=== PATIENT | male | born 1960 | race Caucasian/White ===

== ENCOUNTER 2022-06-27 15:56 | Inpatient (IN) | payer OTHER ==
[2022-06-27 17:01] LABS: HCT 33.7 % (39.0-53.0); MCH 36.6 pg (25.0-35.0); MCHC 32.7 g/dL (31.0-37.0); MCV 112.1 fL (80.0-100.0); Macrocytosis Marked; Platelet Count 195 k/uL (150-450); RDW 13.5 % (11.5-15.5); WBC 19.1 k/uL (3.8-10.6)
--- NOTE | 2022-06-27 17:08 | XR ---
EXAMINATION TYPE: XR chest 2V DATE OF EXAM: 06/27/2022 COMPARISON: NONE HISTORY: Shortness of breath TECHNIQUE: Frontal and lateral views of the chest are obtained. FINDINGS: Scattered senescent parenchymal changes noted. Left lower lobe opacity may reflect developing pneumonia. Correlate clinically. Heart size is stable. Mediastinal structures are stable and grossly unremarkable. No evidence for hilar prominence. Degenerative changes dorsal spine. IMPRESSION: 1. Left lower lobe opacity may reflect developing pneumonia. Correlate clinically.
[2022-06-27 17:18] LABS: ALT 68 U/L (4-49); AST 145 U/L (17-59); African American GFR (CKD) >90 (>60 ml/min/1.73 sqM); Albumin 2.6 g/dL (3.5-5.0); Alkaline Phosphatase 144 U/L (38-126); Anion Gap 9 mmol/L; Blood Urea Nitrogen 19 mg/dL (9-20); Calcium 8.6 mg/dL (8.4-10.2); Carbon Dioxide 22 mmol/L (22-30); Chloride 95 mmol/L (98-107); Glucose 108 mg/dL (74-99); Magnesium 1.8 mg/dL (1.6-2.3); Non-African American GFR(CKD) >90 (>60 ml/min/1.73 sqM); Sodium 126 mmol/L (137-145); Total Bilirubin 5.7 mg/dL (0.2-1.3); Total Protein 6.1 g/dL (6.3-8.2)
[2022-06-27 17:30] LABS: Potassium 5.1 mmol/L (3.5-5.1)
[2022-06-27 17:31] LABS: Lactic Acid, Venous 2.1 mmol/L (0.7-2.0)
--- NOTE | 2022-06-27 17:33 | ED ---
General Adult HPI - General Chief complaint: Recheck/Abnormal Lab/Rx Stated complaint: pneumonia Time Seen by Provider: 06/27/22 16:12 Source: patient, RN notes reviewed, old records reviewed Mode of arrival: EMS - History of Present Illness Initial comments: 61-year-old male presenting for evaluation of fever, pneumonia. Patient sent from assisted for evaluation. Patient has had persistent fever and is currently being treated for pneumonia as an outpatient. He has history of liver cirrhosis and recurrent ascites. Patient is a poor historian but does not have any specific complaints. - Related Data Home Medications Medication Instructions Recorded Confirmed No Known Home Medications 06/27/22 06/27/22 Allergies Allergy/AdvReac Type Severity Reaction Status Date / Time No Known Allergies Allergy Verified 06/27/22 17:51 Review of Systems ROS Statement: Those systems with pertinent positive or pertinent negative responses have been documented in the HPI. ROS Other: All systems not noted in ROS Statement are negative. Past Medical History Additional Past Medical History / Comment(s): aLCOHOLIC cIRRHOSIS OF LIVER WITH ASCITES, WERNICKE'S ENCEPHALOPATHY, THROMBOCYTOPENIA, Past Surgical History: Unable to Obtain Smoking Status: Never smoker General Exam General appearance: alert, in no apparent distress Head exam: Present: atraumatic, normocephalic Eye exam: Present: normal appearance, PERRL, scleral icterus Respiratory exam: Present: normal lung sounds bilaterally. Absent: respiratory distress, wheezes Cardiovascular Exam: Present: regular rate, normal rhythm GI/Abdominal exam: Present: soft, distended. Absent: tenderness, guarding Neurological exam: Present: alert Psychiatric exam: Present: normal affect, normal mood Skin exam: Present: warm, dry, other (Jaundice) Course Vital Signs 06/27/22 06/27/22 15:59 16:58 Temperature 98.3 F Pulse Rate 91 Respiratory 18 20 Rate Blood Pressure 123/103 O2 Sat by Pulse 97 Oximetry Medical Decision Making - Medical Decision Making 61-year-old male presenting with fever, outpatient diagnosis of pneumonia, fails to improve, continued fever. Patient also has abdominal ascites and history of liver failure. No baseline labs for comparison but the patient does appear to be liver failure currently. He also has an elevated white blood cell count at 19. He has a left-sided pneumonia on chest x-ray. He started on IV antibiotics she will be admitted for IV hydration although will receive refrain from too much fluids given his fluid status, hypoalbuminemia and ascites. Additionally he has a hyponatremia. He will be admitted to [facility]. - Lab Data Result diagrams: 06/27/22 16:50 06/27/22 16:50 Lab Results 06/27/22 06/27/22 06/27/22 Range/Units 16:50 16:50 16:50 WBC 19.1 H (3.8-10.6) k/uL RBC 3.00 L (4.30-5.90) m/uL Hgb 11.0 L (13.0-17.5) gm/dL Hct 33.7 L (39.0-53.0) % MCV 112.1 H (80.0-100.0) fL MCH 36.6 H (25.0-35.0) pg MCHC 32.7 (31.0-37.0) g/dL RDW 13.5 (11.5-15.5) % Plt Count 195 (150-450) k/uL MPV 8.0 Macrocytosis Marked A APTT 27.2 (22.0-30.0) sec Sodium 126 L (137-145) mmol/L Potassium 5.1 (3.5-5.1) mmol/L Chloride 95 L (98-107) mmol/L Carbon Dioxide 22 (22-30) mmol/L Anion Gap 9 mmol/L BUN 19 (9-20) mg/dL Creatinine 0.71 (0.66-1.25) mg/dL Est GFR (CKD-EPI)AfAm >90 (>60 ml/min/1.73 sqM) Est GFR (CKD-EPI)NonAf >90 (>60 ml/min/1.73 sqM) Glucose 108 H (74-99) mg/dL Plasma Lactic Acid Yousuf (0.7-2.0) mmol/L Calcium 8.6 (8.4-10.2) mg/dL Magnesium 1.8 (1.6-2.3) mg/dL Total Bilirubin 5.7 H (0.2-1.3) mg/dL AST 145 H (17-59) U/L ALT 68 H (4-49) U/L Alkaline Phosphatase 144 H (38-126) U/L Ammonia (<30) umol/L Total Protein 6.1 L (6.3-8.2) g/dL Albumin 2.6 L (3.5-5.0) g/dL Coronavirus (PCR) (Not Detectd) 06/27/22 06/27/22 Range/Units 16:50 16:50 WBC (3.8-10.6) k/uL RBC (4.30-5.90) m/uL Hgb (13.0-17.5) gm/dL Hct (39.0-53.0) % MCV (80.0-100.0) fL MCH (25.0-35.0) pg MCHC (31.0-37.0) g/dL RDW (11.5-15.5) % Plt Count (150-450) k/uL MPV Macrocytosis APTT (22.0-30.0) sec Sodium (137-145) mmol/L Potassium (3.5-5.1) mmol/L Chloride (98-107) mmol/L Carbon Dioxide (22-30) mmol/L Anion Gap mmol/L BUN (9-20) mg/dL Creatinine (0.66-1.25) mg/dL Est GFR (CKD-EPI)AfAm (>60 ml/min/1.73 sqM) Est GFR (CKD-EPI)NonAf (>60 ml/min/1.73 sqM) Glucose (74-99) mg/dL Plasma Lactic Acid Yousuf 2.1 H* (0.7-2.0) mmol/L Calcium (8.4-10.2) mg/dL Magnesium (1.6-2.3) mg/dL Total Bilirubin (0.2-1.3) mg/dL AST (17-59) U/L ALT (4-49) U/L Alkaline Phosphatase (38-126) U/L Ammonia 16 (<30) umol/L Total Protein (6.3-8.2) g/dL Albumin (3.5-5.0) g/dL Coronavirus (PCR) Not Detected (Not Detectd) Disposition Clinical Impression: Pneumonia, Liver cirrhosis, Hyponatremia Disposition: ADMITTED IP TO THIS [facility] Condition: Stable Is patient prescribed a controlled substance at d/c from ED?: No Referrals: None,Stated [Primary Care Provider] - 1-2 days Time of Disposition: 18:02
[2022-06-27] MEDS ORDERED: cefTRIAXone IN SWFI 1,000 MG/10 ML SYRINGE IVP STA (17:49)
[2022-06-27] MEDS ORDERED: AZITHROMYCIN 500 MG in SODIUM CHLORIDE 0.9% 250 ML IVPB STA (17:59)
[2022-06-27] MEDS ORDERED: PNEUMONIA PROTOCOL UTILIZED 1 EACH MISC PO PRN (17:59)
[2022-06-27 18:15] LABS: Band Neutrophils % 2 %; Eosinophils # (M) 0.38 k/uL (0-0.7); Lymphocytes # (M) 0.96 k/uL (1.0-4.8); Monocytes # (M) 2.29 k/uL (0-1.0); Neutrophils % (M) 79 %; Nucleated Red Blood Cells 0 /100 WBC (0-0); Total Cells Counted 100
[2022-06-27 18:19] LABS: Polychromasia Present
[2022-06-27] MEDS: SODIUM CHLORIDE 0.9% 1,000 ML IV SCH (23:48)
[2022-06-28] MEDS: SODIUM CHLORIDE 0.9% 1,000 ML IV SCH (00:14)
--- NOTE | 2022-06-28 00:23 | P.HPIM ---
History of Present Illness H&P Date: 06/27/22 The patient is a 61-year-old male with a PMH of alcoholic liver cirrhosis, resident of [facility] who was sent in due to confusion and abnormal labs. The patient was a relatively poor historian, thereby history obtained from the ED physician and from the chart. The patient was unaware as to why he was brought to the emergency room and was only oriented to time and self, not oriented to place. The patient reportedly has had persistent fever and was suspected of having pneumonia and had been getting oral antibiotics as an outpatient. The patient reports chronic mild abdominal pain which he attributes to his long- standing ascites. He denied any additional complaints. Denied chest discomfor t, shortness of breath, cough, fever, nausea, vomiting. Chest x-ray in the emergency room revealed a left lower lobe opacity suspicious for pneumonia with laboratory evaluation remarkable for leukocytosis of 19.1 and lactic acid 2.1 with total bilirubin 5.7, AST 145, ALT 68, and alk phos 144. Review of systems: Pertinent positives and negatives as discussed in HPI, a complete review of systems was performed and all other systems are negative. Physical examination: General: non toxic, no distress, appears at stated age, normal weight Derm: no unusual rashes/lesions, warm Head: atraumatic, normocephalic, symmetric Eyes: EOMI, no lid lag, mild scleral icterus, pupils equal round reactive to light ENT: Nose and ears atraumatic Neck: No cervical lymphadenopathy, trachea midline, supple Mouth: no lip lesion, mucus membranes moist Cardiovascular: S1S2 reg, no murmur, positive dorsalis pedis pulse bilateral, no edema Lungs: CTA bilateral, no rhonchi, no rales, no accessory muscle use Abdominal: soft, fluid thrill noted, no tenderness, no guarding Ext: muscle strength 4 out of 5 in all 4 extremities grossly, no gross muscle atrophy, no contractures, Neuro: CN II-XI grossly intact, no gross focal neuro deficits Psych: Alert, oriented to self and time only, not oriented to place Assessment/plan Severe sepsis suspected secondary to pneumonia vs less likely SBP -Continue with ceftriaxone and azithromycin -Judicious use of IV fluids in setting of cirrhosis with ascites -Interventional radiology consulted for paracentesis to rule out SBP -Discussed case in detail with the ED physician regarding need for transfer for GI and weekened IR coverage. The case was discussed with [facility] (where patient receives his care for Cirrhosis). The patient was accepted, however, there is currently a several day wait for a bed. The patient is thereby to be admitted to the [facility] service pending bed availability -Follow blood cultures Cirrhosis with transaminitis -Total bilirubin near baseline as per results obtained from [facility] Hyponatremia, suspected due to ongoing cirrhosis -Continue w/ IVFs and monitor for now Lactic acidosis -Monitor for resolution DVT prophylaxis -IPCDs The patient is admitted with an anticipated greater than 2 midnight stay for evaluation of sepsis CODE STATUS: Full Code Discussed with: Patient Anticipated discharge date: 3-[address]: [facility] Past Medical History Additional Past Medical History / Comment(s): aLCOHOLIC cIRRHOSIS OF LIVER WITH ASCITES, WERNICKE'S ENCEPHALOPATHY, THROMBOCYTOPENIA, Past Surgical History: Unable to Obtain Smoking Status: Never smoker - Past Family History Father Family Medical History: Unable to Obtain (Unable to obtain due to mental status) Medications and Allergies Home Medications Medication Instructions Recorded Confirmed Type No Known Home Medications 06/27/22 06/27/22 History Allergies Allergy/AdvReac Type Severity Reaction Status Date / Time No Known Allergies Allergy Verified 06/27/22 17:51 Physical Exam Vitals: Vital Signs Temp Pulse Pulse Resp BP BP Pulse Ox 06/27/22 21:49 98 18 06/27/22 21:02 98.9 F 06/27/22 20:39 98 18 140/78 97 06/27/22 16:58 20 06/27/22 15:59 98.3 F 91 18 123/103 97 Intake and Output 06/27/22 06/27/22 06/27/22 06:59 14:59 22:59 Other: Weight 84.867 kg Results CBC & Chem 7: 06/27/22 16:50 06/27/22 16:50 Labs: Abnormal Lab Results - Last 24 Hours (Table) 06/27/22 06/27/22 06/27/22 Range/Units 16:50 16:50 16:50 WBC 19.1 H (3.8-10.6) k/uL RBC 3.00 L (4.30-5.90) m/uL Hgb 11.0 L (13.0-17.5) gm/dL Hct 33.7 L (39.0-53.0) % MCV 112.1 H (80.0-100.0) fL MCH 36.6 H (25.0-35.0) pg Neutrophils # (Manual) 15.40 H (1.3-7.7) k/uL Lymphocytes # (Manual) 0.96 L (1.0-4.8) k/uL Monocytes # (Manual) 2.29 H (0-1.0) k/uL Macrocytosis Marked A Sodium 126 L (137-145) mmol/L Chloride 95 L (98-107) mmol/L Glucose 108 H (74-99) mg/dL Plasma Lactic Acid Yousuf 2.1 H* (0.7-2.0) mmol/L Total Bilirubin 5.7 H (0.2-1.3) mg/dL AST 145 H (17-59) U/L ALT 68 H (4-49) U/L Alkaline Phosphatase 144 H (38-126) U/L Total Protein 6.1 L (6.3-8.2) g/dL Albumin 2.6 L (3.5-5.0) g/dL
[2022-06-28 11:36] LABS: HCT 25.9 % (39.6-50.0); HGB 9.1 g/dL (13.0-17.0); MCH 37.1 pg (27.0-32.0); MCHC 35.1 g/dL (32.0-37.0); MCV 105.7 fL (80.0-97.0); Mean Platelet Volume 9.9 fL (9.5-12.2); NRBC Per 100 WBC 0 /100 WBCS (0.0-0.0); Platelet Count 182 X 10*3/uL (140-440); RBC 2.45 X 10*6/uL (4.40-5.60); RDW 13.8 % (11.5-14.5); WBC 14.27 X 10*3/uL (4.50-10.00)
[2022-06-28 12:32] LABS: African American GFR (CKD) 112.3 (60.0-200.0); Albumin 2.2 g/dL (3.8-4.9); Albumin/Globulin Ratio 0.84 (1.60-3.17); Anion Gap 8.5 mmol/L (10.00-18.00); BUN/Creat Ratio 21.24 Ratio (12.00-20.00); Blood Urea Nitrogen 17.1 mg/dL (9.0-27.0); Calcium 8.4 mg/dL (8.7-10.3); Carbon Dioxide 25.1 mmol/L (20.0-27.5); Globulin 2.6 g/dL (1.6-3.3); Non-African American GFR(CKD) 96.9 (60.0-200.0); Potassium 4.7 mmol/L (3.5-5.5); Total Bilirubin 5.7 mg/dL (0.30-1.20); Total Protein 4.8 g/dL (6.2-8.2)
[2022-06-28 13:21] LABS: INR 1.48 (0.90-1.11); Prothrombin Time 16.4 sec (9.9-11.9)
--- NOTE | 2022-06-28 13:52 | P.PN ---
Subjective Progress Note Date: 06/28/22 This morning patient is denying any cough. He is wondering when he'll have his paracentesis is done. I told him that would help with her Thursday. Objective - Vital Signs Vital signs: Vital Signs Temp 98.3 F 06/28/22 07:46 Pulse 93 06/28/22 07:46 Resp 17 06/28/22 07:46 BP 110/71 06/28/22 07:46 Pulse Ox 97 06/28/22 07:46 FiO2 Intake & Output 06/27/22 06/28/22 06/28/22 18:59 06:59 18:59 Intake Total 670 Balance 670 Weight 84.867 kg 84.867 kg Intake: Intake, IV Titration 550 Amount Azithromycin 500 mg In 250 Sodium Chloride 0.9% 250 ml @ 250 mls/hr IVPB ONCE STA Rx#:[id number] Sodium Chloride 0.9% 1, 300 000 ml @ 75 mls/hr IV . 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 Psych - mildly confused - Labs CBC & Chem 7: 06/28/22 07:15 06/28/22 07:15 Labs: Abnormal Lab Results - Last 24 Hours (Table) 06/27/22 06/27/22 06/27/22 Range/Units 16:50 16:50 16:50 WBC 19.1 H (3.8-10.6) k/uL RBC 3.00 L (4.30-5.90) m/uL Hgb 11.0 L (13.0-17.5) gm/dL Hct 33.7 L (39.0-53.0) % MCV 112.1 H (80.0-100.0) fL MCH 36.6 H (25.0-35.0) pg Neutrophils # (Manual) 15.40 H (1.3-7.7) k/uL Lymphocytes # (Manual) 0.96 L (1.0-4.8) k/uL Monocytes # (Manual) 2.29 H (0-1.0) k/uL Macrocytosis Marked A PT (9.9-11.9) sec INR (0.90-1.11) Sodium 126 L (137-145) mmol/L Chloride 95 L (98-107) mmol/L Anion Gap (10.00-18.00) mmol/L BUN/Creatinine Ratio (12.00-20.00) Ratio Glucose 108 H (74-99) mg/dL Plasma Lactic Acid Yousuf 2.1 H* (0.7-2.0) mmol/L Calcium (8.7-10.3) mg/dL Total Bilirubin 5.7 H (0.2-1.3) mg/dL AST 145 H (17-59) U/L ALT 68 H (4-49) U/L Alkaline Phosphatase 144 H (38-126) U/L Total Protein 6.1 L (6.3-8.2) g/dL Albumin 2.6 L (3.5-5.0) g/dL Albumin/Globulin Ratio (1.60-3.17) g/dL 06/28/22 06/28/22 06/28/22 Range/Units 07:15 07:15 07:15 WBC 14.27 H (3.8-10.6) k/uL RBC 2.45 L (4.30-5.90) m/uL Hgb 9.1 L (13.0-17.5) gm/dL Hct 25.9 L (39.0-53.0) % MCV 105.7 H (80.0-100.0) fL MCH 37.1 H (25.0-35.0) pg Neutrophils # (Manual) (1.3-7.7) k/uL Lymphocytes # (Manual) (1.0-4.8) k/uL Monocytes # (Manual) (0-1.0) k/uL Macrocytosis PT 16.4 H (9.9-11.9) sec INR 1.48 H (0.90-1.11) Sodium 132 L (137-145) mmol/L Chloride (98-107) mmol/L Anion Gap 8.50 L (10.00-18.00) mmol/L BUN/Creatinine Ratio 21.24 H (12.00-20.00) Ratio Glucose (74-99) mg/dL Plasma Lactic Acid Yousuf (0.7-2.0) mmol/L Calcium 8.4 L (8.7-10.3) mg/dL Total Bilirubin 5.70 H (0.2-1.3) mg/dL AST 79 H (17-59) U/L ALT 54 H (4-49) U/L Alkaline Phosphatase (38-126) U/L Total Protein 4.8 L (6.3-8.2) g/dL Albumin 2.2 L (3.5-5.0) g/dL Albumin/Globulin Ratio 0.84 L (1.60-3.17) g/dL Assessment and Plan Assessment: Severe sepsis suspected secondary to pneumonia and less likely due to SBP Continue with ceftriaxone and azithromycin Lactic acid has normalized. We'll DC fluids due to ascites IR to do paracentesis on Thursday to rule out SBP Alcoholic liver cirrhosis with transaminitis Patient's bilirubin and LFTs are close to baseline Ammonia level within normal limits Paracentesis on Thursday Hyponatremia Improvement with fluids. We'll DC fluids for now Lactic acidosis Resolved DVT prophylaxis SCDs Full code
[2022-06-28] MEDS: AZITHROMYCIN 500 MG TAB PO SCH (14:29)
[2022-06-29 06:48] LABS: HCT 28.7 % (39.0-53.0); HGB 9.6 gm/dL (13.0-17.5); MCH 36.8 pg (25.0-35.0); MCHC 33.2 g/dL (31.0-37.0); MCV 110.8 fL (80.0-100.0); Macrocytosis Marked; Mean Platelet Volume 7.7; Platelet Count 200 k/uL (150-450); RBC 2.59 m/uL (4.30-5.90); RDW 13.5 % (11.5-15.5); WBC 11.5 k/uL (3.8-10.6)
[2022-06-29 07:00] LABS: ALT 53 U/L (4-49); AST 99 U/L (17-59); African American GFR (CKD) >90 (>60 ml/min/1.73 sqM); Albumin/Globulin Ratio 0.7; Alkaline Phosphatase 99 U/L (38-126); Anion Gap 6 mmol/L; Blood Urea Nitrogen 16 mg/dL (9-20); Calcium 7.9 mg/dL (8.4-10.2); Carbon Dioxide 26 mmol/L (22-30); Chloride 96 mmol/L (98-107); Globulin 2.8 g/dL; Glucose 94 mg/dL (74-99); Non-African American GFR(CKD) >90 (>60 ml/min/1.73 sqM); Potassium 4.8 mmol/L (3.5-5.1); Sodium 128 mmol/L (137-145); Total Bilirubin 5.4 mg/dL (0.2-1.3); Total Protein 4.8 g/dL (6.3-8.2)
[2022-06-29] MEDS: AZITHROMYCIN 500 MG TAB PO SCH (07:56)
--- NOTE | 2022-06-29 10:51 | P.PN ---
Subjective Progress Note Date: 06/29/22 Patient denying any cough. He states that he is eating drinking and sleeping well. Objective - Vital Signs Vital signs: Vital Signs Temp 98.4 F 06/29/22 07:59 Pulse 90 06/29/22 07:59 Resp 17 06/29/22 07:59 BP 125/79 06/29/22 07:59 Pulse Ox 95 06/29/22 07:59 FiO2 Intake & Output 06/28/22 06/29/22 06/29/22 18:59 06:59 18:59 Intake Total 225 Balance 225 Intake: IV 225 Sodium Chloride 0.9% 1, 225 000 ml @ 75 mls/hr IV . 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 Psych - mildly confused - Labs CBC & Chem 7: 06/29/22 05:38 06/29/22 05:38 Labs: Abnormal Lab Results - Last 24 Hours (Table) 06/28/22 06/28/22 06/28/22 Range/Units 07:15 07:15 07:15 WBC 14.27 H (4.50-10.00) X 10*3/uL RBC 2.45 L (4.40-5.60) X 10*6/uL Hgb 9.1 L (13.0-17.0) g/dL Hct 25.9 L (39.6-50.0) % MCV 105.7 H (80.0-97.0) fL MCH 37.1 H (27.0-32.0) pg Macrocytosis PT 16.4 H (9.9-11.9) sec INR 1.48 H (0.90-1.11) Sodium 132 L (135-145) mmol/L Chloride (98-107) mmol/L Anion Gap 8.50 L (10.00-18.00) mmol/L BUN/Creatinine Ratio 21.24 H (12.00-20.00) Ratio Calcium 8.4 L (8.7-10.3) mg/dL Total Bilirubin 5.70 H (0.30-1.20) mg/dL AST 79 H (14-35) U/L ALT 54 H (10-49) U/L Total Protein 4.8 L (6.2-8.2) g/dL Albumin 2.2 L (3.8-4.9) g/dL Albumin/Globulin Ratio 0.84 L (1.60-3.17) g/dL 06/29/22 06/29/22 Range/Units 05:38 05:38 WBC 11.5 H (4.50-10.00) X 10*3/uL RBC 2.59 L (4.40-5.60) X 10*6/uL Hgb 9.6 L (13.0-17.0) g/dL Hct 28.7 L (39.6-50.0) % MCV 110.8 H (80.0-97.0) fL MCH 36.8 H (27.0-32.0) pg Macrocytosis Marked A PT (9.9-11.9) sec INR (0.90-1.11) Sodium 128 L (135-145) mmol/L Chloride 96 L (98-107) mmol/L Anion Gap (10.00-18.00) mmol/L BUN/Creatinine Ratio (12.00-20.00) Ratio Calcium 7.9 L (8.7-10.3) mg/dL Total Bilirubin 5.4 H (0.30-1.20) mg/dL AST 99 H (14-35) U/L ALT 53 H (10-49) U/L Total Protein 4.8 L (6.2-8.2) g/dL Albumin 2.0 L (3.8-4.9) g/dL Albumin/Globulin Ratio (1.60-3.17) g/dL Microbiology - Last 24 Hours (Table) 06/27/22 22:03 Blood Culture - Preliminary Blood No Growth after 24 hours 06/27/22 21:52 Blood Culture - Preliminary Blood No Growth after 24 hours Assessment and Plan Assessment: Severe sepsis suspected secondary to pneumonia and less likely due to SBP Continue with ceftriaxone and azithromycin Lactic acid has normalized. We'll DC fluids due to ascites IR to do paracentesis on Thursday to rule out SBP and also for therapeutic purposes Alcoholic liver cirrhosis with transaminitis Patient's bilirubin and LFTs are close to baseline Ammonia level within normal limits Paracentesis on Thursday Hyponatremia Improvement with fluids. We'll DC fluids for now Lactic acidosis Resolved DVT prophylaxis SCDs Patient can return back to his correction after paracentesis Full code
[2022-06-30] MEDS: AZITHROMYCIN 500 MG TAB PO SCH (08:06)
[2022-06-30 08:12] LABS: INR 1.5 (<1.2); Prothrombin Time 15.5 sec (9.0-12.0)
--- NOTE | 2022-06-30 13:23 | US ---
Ultrasound-guided paracentesis. DATE OF EXAM: 06/30/2022 CLINICAL HISTORY: Ascites The procedure was discussed with the patient. The risks, complications, benefits, and alternatives we re discussed and any questions were answered. Informed consent was obtained. The patient was placed s upine on the ultrasound table and prepped and draped in the usual sterile fashion. All elements of maximal barrier technique were utilized. Under ultrasound guidance, access into the right lower quadrant was obtained, via the paracentesis catheter system and direct ultrasound guidanc e. Approximately 3.5 liters of straw-colored fluid was removed. The patient was stable throughout the pr ocedure and remained stable upon discharge from Department of Radiology. IMPRESSION: Successful paracentesis under ultrasound guidance.
--- NOTE | 2022-06-30 16:26 | P.PN ---
Subjective Progress Note Date: 06/30/22 Patient denying any acute complaint. No other acute issues overnight. Patient had a paracentesis done this morning with 2.5 L fluid removal. 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 We'll DC fluids due to ascites Patient had paracentesis done this morning with 3.5 L fluid removal. Follow-up on fluid analysis Alcoholic liver cirrhosis with transaminitis Patient's bilirubin and LFTs are close to baseline Ammonia level within normal limits Resume home diuretics and lactulose and rifaximin Hyponatremia Improvement with fluids. We'll DC fluids for now due to ascites Lactic acidosis Resolved DVT prophylaxis SCDs Patient can return back to his longterm if fluid analysis from the paracentesis is negative for SBP Full code
[2022-06-30 19:36] LABS: Appearance,BF Hazy
[2022-06-30] MEDS: LACTULOSE 20 GM/30 ML CUP PO SCH (21:36)
[2022-06-30] MEDS: RIFAXIMIN 550 MG TABLET PO SCH (21:36)
[2022-06-30 22:35] LABS: Glucose, BF Source Paracentesis Fluid; Glucose, Body Fluid 106 mg/dL; LDH, Body Fluid Source Paracentesis Fluid
[2022-07-01] MEDS ORDERED: ONDANSETRON 4 MG TAB PO STA (02:19)
[2022-07-01] MEDS: SIMETHICONE 80 MG CHEWABLE PO SCH ×3 (02:43→13:06)
[2022-07-01 07:43] VITALS: RESP 17
[2022-07-01] MEDS: LACTULOSE 20 GM/30 ML CUP PO SCH ×2 (07:45→16:42)
[2022-07-01] MEDS: RIFAXIMIN 550 MG TABLET PO SCH (08:28)
[2022-07-01] MEDS ORDERED: FUROSEMIDE 40 MG TAB PO SCH (09:00)
[2022-07-01] MEDS ORDERED: SPIRONOLACTONE 25 MG TAB PO SCH (13:30)
--- NOTE | 2022-07-01 13:37 | P.DS ---
Providers Date of admission: 06/27/22 17:59 Expected date of discharge: 07/01/22 Attending physician: Marry Gauthier DO Primary care physician: Stated None Hospital Course: The patient is a 61-year-old male with a PMH of alcoholic liver cirrhosis, resident of [facility] who was sent in due to confusion and abnormal labs. The patient was a relatively poor historian, thereby history obtained from the ED physician and from the chart. The patient was unaware as to why he was brought to the emergency room and was only oriented to time and self, not oriented to place. The patient reportedly has had persistent fever and was suspected of having pneumonia and had been getting oral antibiotics as an outpatient. The patient reports chronic mild abdominal pain which he attributes to his long- standing ascites. He denied any additional complaints. Denied chest discomfort, shortness of breath, cough, fever, nausea, vomiting. Chest x-ray in the emergency room revealed a left lower lobe opacity suspicious for pneumonia with laboratory evaluation remarkable for leukocytosis of 19.1 and lactic acid 2.1 with total bilirubin 5.7, AST 145, ALT 68, and alk phos 144. Patient was started on Rocephin and azithromycin for concerns community acquired pneumonia. Patient underwent paracentesis with 2.5 L fluid removal. He completed a course of antibiotics for treatment of pneumonia. His lactic acid normalized with IV hydration. He was continued on Lasix, lactulose and rifaximin. Propranolol and Aldactone was added at the time of discharge. Patient was noted to be hyponatremic with a sodium 128. Repeat BMP was pending at the time of this note. 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 This should improve with fluid restriction. His macrocytic anemia thought to be related to long-standing alcohol abuse. Patient was seen and examined. No acute events overnight. Patient reports no abdominal pain. He denies any shortness of breath or cough. He is advised to follow-up with his PCP within 1-2 days of discharge. He is advised to follow-up with GI within 1 week of discharge. He is advised to take all medications as indicated. Patient verbalized understanding of the plan. He is discharged back to assisted living at [facility] pending BMP. General: non toxic, no distress, appears at stated age Derm: warm, dry, jaundiced Head: atraumatic, normocephalic, symmetric Eyes: EOMI, no lid lag, anicteric sclera Mouth: no lip lesion, mucus membranes moist Cardiovascular: S1S2 reg, no murmur Lungs: Decreased breath sounds bilateral, no rhonchi, no rales , no accessory muscle use Abdominal: soft, nontender to palpation, no guarding, no appreciable organomegaly, distended Ext: no gross muscle atrophy, 1+ pitting bilateral lower extremity edema, no contractures Neuro: no focal neuro deficits Psych: Alert, oriented, appropriate affect Discharge diagnosis: Severe sepsis suspected secondary to pneumonia Alcoholic liver cirrhosis with transaminitis Hyponatremia Lactic acidosis Macrocytic anemia Supratherapeutic INR This complex discharge took about 35 minutes to complete. Pertinent Studies: CXR Procedures: Paracentesis Patient Condition at Discharge: Stable Plan - Discharge Summary Discharge Rx Participant: No New Discharge Prescriptions: New Spironolactone [Aldactone] 25 mg PO DAILY #30 tab Simethicone Chew [Mylicon Chew] 40 mg PO QID #0 tab Propranolol [Inderal] 20 mg PO BID #60 tab Continue Lactulose [Cephulac] 20 gm PO TID Rifaximin [Xifaxan] 550 mg PO BID Furosemide [Lasix] 40 mg PO DAILY Discontinued Spironolactone 100 mg PO DAILY Discharge Medication List Furosemide [Lasix] 40 mg PO DAILY 06/30/22 [History] Lactulose [Cephulac] 20 gm PO TID 06/30/22 [History] Rifaximin [Xifaxan] 550 mg PO BID 06/30/22 [History] Propranolol [Inderal] 20 mg PO BID #60 tab 07/01/22 [Rx] Simethicone Chew [Mylicon Chew] 40 mg PO QID #0 tab 07/01/22 [Rx] Spironolactone [Aldactone] 25 mg PO DAILY #30 tab 07/01/22 [Rx] Follow up Appointment(s)/Referral(s): None,Stated [Primary Care Provider] - 1-2 days Maria Eugenia Ocampo MD [STAFF PHYSICIAN] - 1 Week Activity/Diet/Wound Care/Special Instructions: Diet: Fluid restriction to 1.5L Take all medications as advised. Discharge Disposition: HOME SELF-CARE
[2022-07-01 13:48] VITALS: BP 111/67; PULSE 89; TEMP 97.6
[2022-07-01 13:52] LABS: African American GFR (CKD) >90 (>60 ml/min/1.73 sqM); Anion Gap 9 mmol/L; Blood Urea Nitrogen 16 mg/dL (9-20); Calcium 8.3 mg/dL (8.4-10.2); Carbon Dioxide 25 mmol/L (22-30); Chloride 96 mmol/L (98-107); Glucose 110 mg/dL (74-99); Non-African American GFR(CKD) >90 (>60 ml/min/1.73 sqM); Potassium 4.6 mmol/L (3.5-5.1); Sodium 130 mmol/L (137-145)
[2022-07-01] MEDS ORDERED: PROPRANOLOL 20 MG TAB PO SCH (21:00)
== END 2022-07-01 16:43 | DRG 871 ==
LOC: EC 15:56 → 4SSUR 17:59
PROVIDERS: ADMIT Internal Medicine; ATTEND Internal Medicine
PROC: 0W9G30Z Drainage of Peritoneal Cavity with Drainage Device, Percutaneous Approach (ICD-10-PCS; principal; 2022-06-30)
DX: A41.9 Sepsis, unspecified organism (principal); J18.9 Pneumonia, unspecified organism; E87.1 Hypo-osmolality and hyponatremia; E22.2 Syndrome of inappropriate secretion of antidiuretic hormone; R65.20 Severe sepsis without septic shock; Z20.822 Contact with and (suspected) exposure to COVID-19; E88.09 Other disorders of plasma-protein metabolism, not elsewhere classified; K70.31 Alcoholic cirrhosis of liver with ascites; K72.90 Hepatic failure, unspecified without coma; D53.9 Nutritional anemia, unspecified; R74.01 Elevation of levels of liver transaminase levels; D69.6 Thrombocytopenia, unspecified; R79.1 Abnormal coagulation profile; Z79.01 Long term (current) use of anticoagulants; Z87.01 Personal history of pneumonia (recurrent)
CPT/HCPCS: 36415; 49083; 71046; 80048; 80053; 82140; 82945; 83605; 83615; 83735; 83880; 85025; 85027; 85610; 85730; 87040; 87070; 87075; 87205; 87635; 88108; 88305; 89050; 94760; 96374; 99284

== ENCOUNTER 2022-07-31 12:16 | Day surgery (SDC) | payer OTHER ==
[2022-07-31 12:50] LABS: Platelet Count 183 k/uL (150-450)
[2022-07-31 12:56] VITALS: TEMP 99.6
[2022-07-31 13:01] LABS: INR 1.4 (<1.2); Prothrombin Time 14.2 sec (9.0-12.0)
[2022-07-31 13:02] LABS: African American GFR (CKD) >90 (>60 ml/min/1.73 sqM); Non-African American GFR(CKD) >90 (>60 ml/min/1.73 sqM)
[2022-07-31] MEDS: ALBUMIN HUMAN 25% 50 ML in EMPTY BAG 1 BAG IVPB SCH ×2 (14:43→14:44)
[2022-07-31 14:51] VITALS: RESP 18
[2022-07-31 15:13] VITALS: BP 107/69; PULSE 66
--- NOTE | 2022-07-31 15:13 | US ---
EXAMINATION TYPE: US paracentesis abd w/image DATE OF EXAM: 07/31/2022 COMPARISON: NONE HISTORY: Ascites. PROCEDURE: Maximal barrier technique was utilized. The skin overlying a suitable pocket of fluid was localized with ultrasound and the overlying skin was prepped and draped. Ultrasound was utilized with sterile technique. Lidocaine was used for local anesthesia and a skin aleksey made with a scalpel. Catheter was advanced under direct ultrasound guidance into a suitable pocket of fluid and approximately 4.3 liter s of ascites fluid were removed. Catheter was withdrawn and hemostasis achieved. There is no immedi ate complication; the patient is discharged in stable condition. IMPRESSION: STATUS POST ULTRASOUND GUIDED PARACENTESIS FOR PALLIATION OF ASCITES. THIS PROCEDURE WA S PERFORMED BY THE UNDERSIGNED.
== END 2022-07-31 15:08 | disposition home or self-care (01) ==
LOC: RADPROMAIN 12:16
PROVIDERS: ATTEND Internal Medicine
DX: R18.8 Other ascites (principal); R10.9 Unspecified abdominal pain
CPT/HCPCS: 36415; 49083; 82565; 85049; 85610

== ENCOUNTER 2022-10-22 12:09 | Day surgery (SDC) | payer OTHER ==
[2022-10-22 12:44] VITALS: BP 116/68; PULSE 65; RESP 16
--- NOTE | 2022-10-22 13:44 | US ---
Ultrasound-guided paracentesis. DATE OF EXAM: 10/22/2022 CLINICAL HISTORY: Ascites Peliminary imaging demonstrated no sizable fluid collection. Procedure deferred. IMPRESSION: Deferred paracentesis.
== END 2022-10-22 13:15 | disposition home health service (06) ==
LOC: RADPROMAIN 12:09
PROVIDERS: ATTEND Internal Medicine Gastroenterology
DX: R18.8 Other ascites (principal); Z53.8 Procedure and treatment not carried out for other reasons
CPT/HCPCS: 76705